=== PATIENT | female | born 1950 | race Caucasian/White ===

== ENCOUNTER 2021-05-19 11:24 | Outpatient (CLI) | payer MEDICARE, BC, SELFPAY ==
--- NOTE | 2021-05-19 11:34 | XR_ITS ---
WS: [id number] Chest 2 views, 05/19/2021 Clinical Data: ALLERGIC RHINITIS, POST NASAL DRIP Comparison: None. Findings: No nodules, masses or effusions are seen. The heart is normal. The pulmonary vascularity is not increased. No pneumonia or pneumothorax is seen. The aortic arch and descending thoracic aorta s how tortuosity. XR/XR chest 2V* [id number] Impression: Atherosclerosis.
== END 2021-05-19 11:25 | disposition home or self-care (01) ==
PROVIDERS: Visit Provider Specialist
DX: J30.9 Allergic rhinitis, unspecified (principal); I70.90 Unspecified atherosclerosis
CPT/HCPCS: 71046